=== PATIENT | male | born 1950 | race Caucasian/White ===

== ENCOUNTER 2019-08-03 19:02 | Inpatient (IN) | payer OTHER ==
[2019-08-03 19:54] LABS: Absolute Lymphocytes (CBC) 1.6 K/uL (0.7-4.9); Basophils % 0.9 % (0-1.3); Hematocrit 45.2 % (39.6-49.0); Lymphocytes % 25.1 % (15.3-44.8); MPV 7.9 fL (7.6-11.3); RBC Red Blood Cell Count 4.93 M/uL (4.33-5.43)
[2019-08-03 20:09] LABS: Protime INR 0.94
[2019-08-03 20:17] LABS: ALT/SGPT 54 U/L (12-78); AST/SGOT 43 U/L (15-37); Albumin 3.9 g/dL (3.4-5.0); Alkaline Phosphatase 78 U/L (45-117); BUN Blood Urea Nitrogen 16 mg/dL (7-18); Bicarbonate 27 mmol/L (21-32); Bilirubin Direct < 0.1 mg/dL (0-0.2); Bilirubin Total 0.4 mg/dL (0.2-1.0); Glucose Level 100 mg/dL (74-106); Magnesium 2.5 mg/dL (1.8-2.4); NT PRO-BNP 594 pg/mL (<125); Potassium 4.1 mmol/L (3.5-5.1); Protein, Total 7.1 g/dL (6.4-8.2); Sodium Level 142 mmol/L (136-145); Troponin (Emerg Dept Use Only) 0.22 ng/mL (0.0-0.045)
--- NOTE | 2019-08-03 20:50 | RAD REPORT ---
EXAM DESCRIPTION: RAD - Chest Single View - 08/03/2019 7:54 pm CLINICAL HISTORY: CHEST PAIN COMPARISON: None TECHNIQUE: AP portable chest image was obtained 08/03/2019 7:54 pm . FINDINGS: Lungs are clear. Heart and vasculature are normal. No measurable pleural effusion and no p neumothorax. No acute bony abnormality seen. No acute aortic findings suspected. IMPRESSION: No acute cardiopulmonary process.
--- NOTE | 2019-08-03 20:53 | ER ---
Nurse's Notes [facility] Name: Nam Ford Age: 69 yrs Sex: Male : 1950 Arrival Date: 08/03/2019 Time: 19:06 Bed 23 Private MD: Diagnosis: Chest pain, unspecified Presentation: 08/02 19:15 Chief complaint: Patient states: I am having this chest tightness non radiating started rr5 2 weeks ago. when I belch I feel fine. Coronavirus screen: Proceed with normal triage. Ebola Screen: Patient negative for fever greater than or equal to 101.5 degrees Fahrenheit, and additional compatible Ebola Virus Disease symptoms Patient denies exposure to infectious person. Patient denies travel to an Ebola-affected area in the 21 days before illness onset. Initial Sepsis Screen: Does the patient meet any 2 criteria? No. Patient's initial sepsis screen is negative. Does the patient have a suspected source of infection? No. Patient's initial sepsis screen is negative. Risk Assessment: Do you want to hurt yourself or someone else? Patient reports no desire to harm self or others. Onset of symptoms was June 2019. 19:15 Method Of Arrival: Ambulatory rr5 19:15 Acuity: SHARON 3 rr5 Historical: - Allergies: 19:19 No Known Allergies; rr5 - Home Meds: 19:19 aspirin 81 mg Oral chew 1 tab once daily [Active]; rr5 - PMHx: 19:19 None; rr5 - PSHx: 19:19 None; rr5 - Immunization history:: Adult Immunizations up to date. - Social history:: Smoking status: unknown Patient/guardian denies using alcohol, street drugs. Screenin:45 Abuse screen: Denies threats or abuse. Denies injuries from another. Nutritional wh screening: No deficits noted. Tuberculosis screening: No symptoms or risk factors identified. Fall Risk None identified. Assessment: 19:30 General: Appears in no apparent distress. Behavior is calm, cooperative, appropriate wh for age. Pain: Complains of pain in chest Pain does not radiate. Pain currently is 2 out of 10 on a pain scale. Quality of pain is described as pressure, Pain began 2 weeks ago Is intermittent. Neuro: Level of Consciousness is awake, alert, obeys commands, Oriented to person, place, time, situation, Appropriate for age. Cardiovascular: Heart tones S1 S2 Rhythm is regular. Respiratory: Airway is patent Respiratory effort is even, unlabored, Respiratory pattern is regular, symmetrical, Breath sounds are clear bilaterally. GI: Abdomen is flat, non-distended. : No signs and/or symptoms were reported regarding the genitourinary system. EENT: No signs and/or symptoms were reported regarding the EENT system. Derm: Skin is intact, is healthy with good turgor, Skin is pink, warm \T\ dry. normal. Musculoskeletal: Circulation, motion, and sensation intact. 21:05 Reassessment: Patient appears in no apparent distress at this time. No changes from previously documented assessment. Patient and/or family updated on plan of care and expected duration. Pain level reassessed. Patient is alert, oriented x 3, equal unlabored respirations, skin warm/dry/pink. MD at bedside explaining POC need for admit. 22:25 Reassessment: Patient appears in no apparent distress at this time. No changes from previously documented assessment. Patient and/or family updated on plan of care and expected duration. Pain level reassessed. Patient is alert, oriented x 3, equal unlabored respirations, skin warm/dry/pink. Vital Signs: 19:15 BP 147 / 86; Pulse 80; Resp 16; Temp 98.1; Pulse Ox 100% ; Weight 77.11 kg; Height 5 rr5 ft. 9 in. (175.26 cm); Pain 0/10; 21:00 BP 143 / 83; Pulse 85; Resp 18; Pulse Ox 99% on R/A; wh 22:00 BP 134 / 82; Pulse 70; Resp 18; Pulse Ox 100% on R/A; wh 19:15 Body Mass Index 25.10 (77.11 kg, 175.26 cm) rr5 ED Course: 19:06 Patient arrived in ED. mr 19:18 Triage completed. rr5 19:20 Arm band placed on left wrist. rr5 19:28 Ventura Barrios MD is Attending Physician. 7 19:36 Lisa Lowry is Primary Nurse. wh 19:45 Patient has correct armband on for positive identification. Bed in low position. Call light in reach. Side rails up X 1. classroom monitor on. Pulse ox on. NIBP on. 19:45 Inserted saline lock: 20 gauge in right antecubital area, using aseptic technique. Blood collected. Patient maintains SpO2 saturation greater than 95% on room air. 19:54 XRAY Chest (1 view) In Process Unspecified. EDID 20:50 Xavier Mccall is Hospitalizing Provider. [facility] 22:25 No provider procedures requiring assistance completed. Patient admitted, IV remains in place. Administered Medications: 20:47 CANCELLED (Physician Discretion): Aspirin Chewable Tablet 162 mg PO once [facility] 20:58 Drug: Lovenox 1 mg/kg Route: Sub-Q; Site: right lower abdomen; 21:08 Follow up: Response: No adverse reaction 20:59 Drug: Aspirin Chewable Tablet 324 mg {Note: 243 mg PO given, Pt took 81 mg Aspirin at home.} Route: PO; 21:08 Follow up: Response: No adverse reaction Outcome: 20:51 Decision to Hospitalize by Provider. [facility] 22:25 Admitted to Med/surg accompanied by tech, via wheelchair, room 212, with chart, Report called to Laura Harvey RN 22:25 Condition: stable 22:25 Instructed on the need for admit. 22:38 Patient left the ED. Signatures: Dispatcher [employer] Virginia Anderson mr Alen, [facility] Didier Parada RN RN rr5 Ventura Barrios MD MD 7
--- NOTE | 2019-08-03 20:53 | EDPHYS ---
Physician Documentation [facility] Name: Nam Ford Age: 69 yrs Sex: Male : 1950 Arrival Date: 08/03/2019 Time: 19:06 Bed 23 Private MD: ED Physician Ventura Barrios HPI: 08/02 19:38 This 69 yrs old Male presents to ER via Ambulatory with complaints of Chest mh7 Pain. 19:38 The patient or guardian reports chest pain that is located primarily in the substernal mh7 area. Onset: today, 4 hour(s) ago. The pain does not radiate. Associated signs and symptoms: Pertinent positives: nausea, Pertinent negatives: abdominal pain, cough, diaphoresis, dizziness, headache, lower extremity pain, lower extremity swelling, lightheadedness, near syncope, palpitations, recent travel, shortness of breath, syncope, vomiting. The chest pain is described as tightness. Duration: The patient or guardian reports multiple episodes, that are intermittent, that wax and wane, the episodes last approximately 5 minute(s). Modifying factors: The symptoms are alleviated by rest, the symptoms are aggravated by nothing. Severity of pain: At its worst the pain was moderate today, in the emergency department the pain has improved moderately. Patient states that he has had some intermittent chest tightness for 2 weeks that only occurred at night while laying down. He states that today he felt chest pain while at the store. He had some nausea but denies vomiting, SOB, abdominal pain, or other complaints.. Historical: - Allergies: 19:19 No Known Allergies; rr5 - Home Meds: 19:19 aspirin 81 mg Oral chew 1 tab once daily [Active]; rr5 - PMHx: 19:19 None; rr5 - PSHx: 19:19 None; rr5 - Immunization history:: Adult Immunizations up to date. - Social history:: Smoking status: unknown Patient/guardian denies using alcohol, street drugs. ROS: 19:38 Constitutional: Negative for fever, chills, and weight loss, Eyes: Negative for injury, mh7 pain, redness, and discharge, ENT: Negative for injury, pain, and discharge, Neck: Negative for injury, pain, and swelling, Respiratory: Negative for shortness of breath, cough, wheezing, and pleuritic chest pain, Back: Negative for injury and pain, : Negative for injury, bleeding, discharge, and swelling, MS/Extremity: Negative for injury and deformity, Skin: Negative for injury, rash, and discoloration, Neuro: Negative for headache, weakness, numbness, tingling, and seizure, Psych: Negative for depression, anxiety, suicide ideation, homicidal ideation, and hallucinations, Allergy/Immunology: Negative for hives, rash, and allergies, Endocrine: Negative for neck swelling, polydipsia, polyuria, polyphagia, and marked weight changes, Hematologic/Lymphatic: Negative for swollen nodes, abnormal bleeding, and unusual bruising. Exam: 19:38 Constitutional: This is a well developed, well nourished patient who is awake, alert, mh7 and in no acute distress. Head/Face: Normocephalic, atraumatic. Eyes: Pupils equal round and reactive to light, extra-ocular motions intact. Lids and lashes normal. Conjunctiva and sclera are non-icteric and not injected. Cornea within normal limits. Periorbital areas with no swelling, redness, or edema. Neck: Trachea midline, no thyromegaly or masses palpated, and no cervical lymphadenopathy. Supple, full range of motion without nuchal rigidity, or vertebral point tenderness. No Meningismus. Chest/axilla: Normal chest wall appearance and motion. Nontender with no deformity. No lesions are appreciated. Cardiovascular: Regular rate and rhythm with a normal S1 and S2. No gallops, murmurs, or rubs. Normal PMI, no JVD. No pulse deficits. Respiratory: Lungs have equal breath sounds bilaterally, clear to auscultation and percussion. No rales, rhonchi or wheezes noted. No increased work of breathing, no retractions or nasal flaring. Abdomen/GI: Soft, non-tender, with normal bowel sounds. No distension or tympany. No guarding or rebound. No evidence of tenderness throughout. Back: No spinal tenderness. No costovertebral tenderness. Full range of motion. Skin: Warm, dry with normal turgor. Normal color with no rashes, no lesions, and no evidence of cellulitis. MS/ Extremity: Pulses equal, no cyanosis. Neurovascular intact. Full, normal range of motion. Neuro: Awake and alert, GCS 15, oriented to person, place, time, and situation. Cranial nerves II-XII grossly intact. Motor strength 5/5 in all extremities. Sensory grossly intact. Cerebellar exam normal. Normal gait. Psych: Awake, alert, with orientation to person, place and time. Behavior, mood, and affect are within normal limits. 19:38 ECG was reviewed by the Attending Physician. 7 Vital Signs: 19:15 BP 147 / 86; Pulse 80; Resp 16; Temp 98.1; Pulse Ox 100% ; Weight 77.11 kg; Height 5 rr5 ft. 9 in. (175.26 cm); Pain 0/10; 21:00 BP 143 / 83; Pulse 85; Resp 18; Pulse Ox 99% on R/A; wh 22:00 BP 134 / 82; Pulse 70; Resp 18; Pulse Ox 100% on R/A; wh 19:15 Body Mass Index 25.10 (77.11 kg, 175.26 cm) rr5 MDM: 19:[address] [facility] 20:48 Differential diagnosis: acute myocardial infarction, acute pericarditis, coronary mh7 artery disease chest wall pain, congestive heart failure costochondritis, esophagitis, gastritis, myocarditis, pneumonia, stable angina, unstable angina. HEART Score: History: Moderately Suspicious (1), ECG: Non specific repolarization disturbance / LBTB / PM (1), Age: > or = 65 years (2), Risk Factors: No Risk Factors Known (0), Troponin: > 1 and < 3 x normal limit (1), Total Score = 5. The patient was given aspirin in the Emergency Department. Data reviewed: vital signs, nurses notes, lab test result(s), cardiac enzymes, CBC, electrolytes, urinalysis, EKG, radiologic studies, plain films. Data interpreted: teletypesetter monitor: rate is 80 beats/min, rhythm is normal sinus rhythm, regular, Interpretation: normal rate, normal rhythm, Pulse oximetry: on room air is 100 %. Interpretation: normal. Counseling: I had a detailed discussion with the patient and/or guardian regarding: the historical points, exam findings, and any diagnostic results supporting the discharge/admit diagnosis, the presence of at least one elevated blood pressure reading (>120/80) during this emergency department visit, lab results, radiology results, the need for further work-up and treatment in the hospital. Response to treatment: the patient's symptoms have markedly improved after treatment. 08/02 19:35 Order name: Basic Metabolic Panel; Complete Time: 20:39 7 08/02 19:35 Order name: CBC with Diff; Complete Time: 20:39 7 08/02 19:35 Order name: LFT's; Complete Time: 20:39 7 08/02 19:35 Order name: Magnesium; Complete Time: 20:39 7 08/02 19:35 Order name: NT PRO-BNP; Complete Time: 20:39 7 08/02 19:35 Order name: PT-INR; Complete Time: 06:39 7 08/02 19:35 Order name: Troponin (emerg Dept Use Only); Complete Time: 20:39 7 08/02 19:35 Order name: XRAY Chest (1 view); Complete Time: 06:39 7 08/02 19:35 Order name: EKG; Complete Time: 19:36 7 08/02 20:57 Order name: D-Dimer; Complete Time: 06:39 EDMS 08/02 19:35 Order name: Cardiac monitoring; Complete Time: 19:43 7 08/02 19:35 Order name: EKG - Nurse/Tech; Complete Time: 19:43 7 08/02 19:35 Order name: IV Saline Lock; Complete Time: 19:43 7 08/02 19:35 Order name: Labs collected and sent; Complete Time: 19:43 7 08/02 19:35 Order name: O2 Per Protocol; Complete Time: 19:43 7 08/02 19:35 Order name: O2 Sat Monitoring; Complete Time: 19:43 mh7 EC:38 Rate is 77 beats/min. Rhythm is regular, Normal Sinus Rhythm. QRS [place] is Normal. [place] mh7 interval is normal. QRS interval is normal. QT interval is normal. No Q waves. T waves are Inverted in lead V1. No ST changes noted. Clinical impression: NSR w/ Non-specific ST/T Changes. Administered Medications: 20:47 CANCELLED (Physician Discretion): Aspirin Chewable Tablet 162 mg PO once mh7 20:58 Drug: Lovenox 1 mg/kg Route: Sub-Q; Site: right lower abdomen; 21:08 Follow up: Response: No adverse reaction 20:59 Drug: Aspirin Chewable Tablet 324 mg {Note: 243 mg PO given, Pt took 81 mg Aspirin at home.} Route: PO; 21:08 Follow up: Response: No adverse reaction Disposition: 08/03/19 20:51 Hospitalization ordered by Xavier Mccall for Inpatient Admission. Preliminary diagnosis is Chest pain, unspecified. - Bed requested for Telemetry/MedSurg (Inpatient). - Status is Inpatient Admission. - Condition is Stable. - Problem is new. - Symptoms have improved. Signatures: Dispatcher [employer] [facility] Shae Landry, RN RN tl1 Alen, Lisa Didier Parada RN RN rr5 Ventura Barrios MD MD 7 Corrections: (The following items were deleted from the chart) 20:47 20:47 Aspirin Chewable Tablet 162 mg PO once ordered. [place] [id number] 20:57 20:45 D-DIMER+COAG.LAB.BRZ ordered. [facility] 22:12 20:51 Hospitalization Ordered by Xavier Mccall for Inpatient Admission. Preliminary tl1 diagnosis is Chest pain, unspecified. Bed requested for Telemetry/MedSurg (Inpatient). Status is Inpatient Admission. Condition is Stable. Problem is new. Symptoms have improved. [facility] 22:38 22:12 08/03/2019 20:51 Hospitalization Ordered by Xavier Mccall for Inpatient Admission. Preliminary diagnosis is Chest pain, unspecified. Bed requested for Telemetry/MedSurg (Inpatient). Status is Inpatient Admission. Condition is Stable. Problem is new. Symptoms have improved. tl1
[2019-08-03] MEDS ORDERED: ASPIRIN 81 MG CHEWABLE TABLET ONE (20:58)
[2019-08-03] MEDS ORDERED: ENOXAPARIN 80 MG/0.8 ML SQ ONE ×2 (21:04→22:58)
--- NOTE | 2019-08-03 21:21 | P.HP ---
Certification for Inpatient Patient admitted to: Observation With expected LOS: <2 Midnights Practitioner: I am a practitioner with admitting privileges, knowledge of patient current condition, hospital course, and medical plan of care. Services: Services provided to patient in accordance with Admission requirements found in Title 42 Section 412.3 of the Code of Federal Regulations Patient History Date of Service: 08/03/19 Reason for admission: Chest pain History of Present Illness: 69-year-old gentleman with no known past medical history presented emergency department with a complaint of intermittent chest of about 1 week duration. Chest pain described as tightness, worse with supine position, not related to exertion, no known aggravating or relieving factors. Patient to baby aspirin before coming to the ED. His initial troponin is elevated to 0.22. EKG demonstrates sinus rhythm with nonspecific T-wave changes. No known family history of cardiac disease. Patient is placed under observation for NSTEMI. Allergies No Known Allergies Allergy (Verified 08/03/19 22:49) Home Medications: Aspirin Chewable [Aspirin Chewable*] 1 tab PO DAILY 08/03/19 Atorvastatin Calcium 40 mg PO BEDTIME #30 tablet 08/05/19 Clopidogrel Bisulfate [Plavix] 75 mg PO DAILY #30 tablet 08/05/19 Metoprolol Tartrate [Lopressor*] 12.5 mg PO BID #60 tab 08/05/19 - Past Medical/Surgical History -: None -: None - Family History Mother -: Stroke Father Notes: denies hx - Social History Smoking Status: Never smoker Alcohol use: Yes CD- Drugs: No Place of Residence: Home Review of Systems Other: Except as documented, all other systems reviewed and negative. Physical Examination - Physical Exam General: Alert, In no apparent distress, Oriented x3 HEENT: Mucous membr. moist/pink Neck: Supple, JVD not distended Cardiovascular: No edema, Regular rate/rhythm, Normal S1 S2, No murmurs Gastrointestinal: Normal bowel sounds, Soft and benign, No tenderness Musculoskeletal: No swelling, No erythema Integumentary: No rashes, No tenderness/swelling Neurological: Normal speech, Normal strength at 5/5 x4 extr - Studies Laboratory Data (last 24 hrs) 08/03/19 19:40: PT 11.1, INR 0.94 08/03/19 19:40: WBC 6.4, Hgb 15.1, Hct 45.2, Plt Count 235 08/03/19 19:40: Sodium 142, Potassium 4.1, BUN 16, Creatinine 0.98, Glucose 100, Magnesium 2.5 H, Total Bilirubin 0.4, AST 43 H, ALT 54, Alkaline Phosphatase 78 Assessment and Plan - Problems (Diagnosis) (1) NSTEMI (non-ST elevated myocardial infarction) Status: Acute - Plan Place under observation. Continue to trend troponin. A shot of full-dose lovenox Aspirin, Plavix, metoprolol. Cardiology consult. Echocardiogram. Check lipid profile, TSH. - Advance Directives Does patient have a Living Will: No Does patient have a Durable POA for Healthcare: No
[2019-08-03] MEDS ORDERED: NITROGLYCERIN 0.4 MG/TAB SL PRN (22:58)
[2019-08-03 23:04] VITALS: BMI 24.9
[2019-08-03 23:47] LABS: Troponin I 0.21 ng/mL (0.0-0.045)
[2019-08-04] MEDS: METOPROLOL TAR 25 MG TAB PO SCH ×3 (00:10→21:24)
[2019-08-04 04:24] LABS: Absolute Lymphocytes (CBC) 1.6 K/uL (0.7-4.9); Basophils % 0.8 % (0-1.3); Hematocrit 43.2 % (39.6-49.0); Lymphocytes % 31.2 % (15.3-44.8); RBC Red Blood Cell Count 4.73 M/uL (4.33-5.43)
[2019-08-04 04:40] LABS: Potassium 4.2 mmol/L (3.5-5.1)
--- NOTE | 2019-08-04 06:54 | EKG ---
Test Date: 2019-08-03 Test Time: 19:24:44 [employer] T[employer]: RR MEASUREMENT RESULTS: Intervals: Rate: 77 TX: 192 QRSD: 88 QT: 382 QTc: 432 [place]: P: 54 TX: 192 QRS: -5 T: 35 INTERPRETIVE STATEMENTS: Normal sinus rhythm Nonspecific ST abnormality Abnormal ECG No previous ECG available for comparison Electronically Signed On 08-04-19 06:53:18 CDT by Aashish Baldwin
[2019-08-04] MEDS: ASPIRIN EC 81 MG TAB PO SCH (08:56)
--- NOTE | 2019-08-04 09:58 | CON ---
Date of Consultation: 08/04/2019 Reason For Consultation: [id number] myocardial infarction. History Of Present Illness: Mr. Ford is a 69-year-old white male with no past medical history, does not know if family history of CVA. Denied diabetes or dyslipidemia. Came in with substernal chest pressure, felt more like bloating, lasted about 15-20 minutes. He woke up right before he had the sy mptoms, so they are not exertional. The patient's symptoms radiated to the back. Had some nausea an d vomiting, but no diaphoresis. Has had some shortness of breath. His troponin was 0.22. His EKG w as nonspecific. His BNP was 594. Chest x-ray was negative. Past Medical History: Negative. Allergies: NONE. Medications: At home include aspirin. Review of Systems: Negative. Social History: Negative. He just moved from [place], [place] 2 weeks ago to live here close to his children. Physical Examination: Vital Signs: Stable, afebrile. HEENT: Negative. Neck: Supple, no bruit. Chest: Clear. Cardiac Exam: Revealed regular rhythm and rate. No murmurs, gallops, or rubs. Abdomen: Benign. Extremities: Revealed no clubbing, cyanosis, or edema. Diagnostic Data: As stated earlier. Impression And Plan: Patient with substernal chest pressure, positive troponin. He is on aspirin, m etoprolol, Lovenox. I agree with his present regimen. Echocardiogram is pending. I think he needs to have a heart catheterization to define his coronary anatomy. Patient understands the risk and the benefits of the procedure and he agrees to proceed. We will plan for the catheterization later on [facility]chel simms. JAY/JE Voice ID: [id number] Report ID: [id number]
[2019-08-04] MEDS ORDERED: HEPA 1000U/500MLS 1,000 UNIT/500 ML BAG IV ONE (10:15)
[2019-08-04] MEDS ORDERED: LIDOCAINE 1% 20 ML MDV ONE (10:15)
[2019-08-04] MEDS ORDERED: NA CHLORIDE 0.9% 1,000 ML ONE (10:47)
[2019-08-04] MEDS ORDERED: NA CHLORIDE 0.9% 50 ML ONE (10:56)
[2019-08-04] MEDS ORDERED: FENTANYL CITR 100 MCG/2 ML ONE (10:56)
[2019-08-04] MEDS ORDERED: MIDAZOLAM HCL 2 MG/2 ML INJ ONE ×2 (10:56→11:09)
[2019-08-04] MEDS ORDERED: ATROPINE SULF 1 MG/10 ML SYR IV ONE (10:56)
[2019-08-04] MEDS ORDERED: NITROGLYCERIN 100 MCG/ML SYR (for cath lab use only) IV ONE (11:36)
[2019-08-04] MEDS ORDERED: NITROGLYCERIN/D5W 25 MG/250 ML BTL IV ONE (11:37)
[2019-08-04] MEDS ORDERED: PRASUGREL (EFFIENT) 10 MG TAB ONE (12:07)
--- NOTE | 2019-08-04 15:19 | P.PN ---
Subjective Date of Service: 08/04/19 Chief Complaint: Chest pain Subjective: No new changes, No C/O voiced Physical Examination - Vital Signs Temperature: 97.2 F Blood Pressure: 114/67 Pulse: 69 Respirations: 16 Pulse Ox (%): 100 - Physical Exam General: Alert, In no apparent distress, Oriented x3 HEENT: Atraumatic, Normocephalic, PERRLA Neck: Supple, 2+ carotid pulse no bruit, JVD not distended Respiratory: Clear to auscultation bilaterally, Normal air movement Cardiovascular: No edema, Normal pulses, Regular rate/rhythm, Normal S1 S2 Gastrointestinal: Normal bowel sounds, Soft and benign, Non-distended Musculoskeletal: No clubbing, No swelling Neurological: Normal gait, Normal speech, Normal strength at 5/5 x4 extr - Studies Laboratory Data (last 24 hrs) 08/04/19 08:49: Troponin I 0.20 H 08/04/19 03:50: Sodium 144, Potassium 4.2, BUN 13, Creatinine 0.89, Glucose 101 08/04/19 03:50: WBC 5.1 D, Hgb 14.8, Hct 43.2, Plt Count 213 08/03/19 23:21: Troponin I 0.21 H, Triglycerides 133, Cholesterol 206 H, HDL Cholesterol 61 H, Cholesterol/HDL Ratio 3.38 08/03/19 19:40: PT 11.1, INR 0.94 08/03/19 19:40: WBC 6.4, Hgb 15.1, Hct 45.2, Plt Count 235 08/03/19 19:40: Sodium 142, Potassium 4.1, BUN 16, Creatinine 0.98, Glucose 100, Magnesium 2.5 H, Total Bilirubin 0.4, AST 43 H, ALT 54, Alkaline Phosphatase 78 Microbiology Data (last 24 hrs): 08/03/19 23:03 Nasopharnyx Coronavirus COVID-19 PCR - Final Assessment And Plan Discharge Plan: Home Physician Review: Patient Assessed, Agree with Above Assessment and Plan Physician Review Additional Text: Chest pain-follow cardiac catheterization today If negative CT scan discharged Hypertension-controlled Time Spent Managing PTS Care (In Minutes): 30
--- NOTE | 2019-08-05 03:38 | OP ---
Surgeon: Aashish Baldwin MD Endoscopy Support Specialist: Augustina Ramirez. Procedure: Left heart catheterization, selective coronary arteriogram, primary stent of the proximal LAD, primary stent of the distal RCA. Indication: Mr. Ford is a 69-year-old white male, no previous medical history, who comes in with a non-ST elevation myocardial infarction on 08/03/2019. Description Of Procedure: He was brought to the laborer electroplating today as an inpatient. Today's date was . He was prepped and draped in the routine sterile fashion. He was given Versed and fentany l for sedation. A 6-Citizen [place] sheath introduced in the right common femoral artery successfully. Left Justen catheter and right Justen catheter were used to cannulate the left main and right main respe ctively. He was found to have a 50% OM1. He had a 95% proximal LAD. He had a 90% distal RCA. Inte rventions were decided on both lesions. The LAD was intervened using an XB LAD 3.5 guide with side h oles. A 0.014 [place] wire was used to cross the lesion successfully. A 2.75 x 16 stent was deployed with 0% residual. There were no complications, dissections, or acute closure or thrombus. Followin g that, a JR4 6-[place]izen [place] with side hole was used to cannulate the right main. The same wire was used t o cross the distal lesion in the RCA. A 2.5 x 12 stent Synergy was then deployed distally with 0% re sidual. Following the stent, there were some spasm in the proximal RCA with ST elevation that was tr eated with IV nitroglycerin intracoronary with resolution of the spasm and resolution of the ST wilkes es. Patient was asymptomatic without any hemodynamic compromise. He had occasional PVC. Overall, t here were no complications. Blood loss was 5 mL. Patient received Angiomax, aspirin, and Effient dur ing the procedure. Total conscious sedation was 1 hour. Final Diagnosis: [id number] myocardial infarction, status post primary stent of the LAD, proxi mal and primary stent of the RCA, distal. Plan: Patient will be admitted back to the floor. He will be going home tomorrow morning on aspirin , Plavix, Lipitor, and Toprol. NB/MODL Voice ID: [id number] Report ID: [id number]
[2019-08-05] MEDS: METOPROLOL TAR 25 MG TAB PO SCH (08:29)
[2019-08-05] MEDS: ASPIRIN EC 81 MG TAB PO SCH (08:29)
[2019-08-05 08:32] VITALS: BP 113/65
--- NOTE | 2019-08-05 08:54 | ECHO ---
HEIGHT: 5 ft 9 in WEIGHT: 168 lb 11.2 oz DATE OF STUDY: 08/04/[address]: precious arredondo 2-DIMENSIONAL: YES M.MODE: YES DOPPLER: YES COLOR FLOW: YES TDS: PORTABLE: DEFINITY: BUBBLE STUDY: DIAGNOSIS: NSTEMI CARDIAC HISTORY: CATHERIZATION: NO SURGERY: NO PROSTHETIC VALVE: NO PACEMAKER: NO MEASUREMENTS (cm) DIASTOLIC (NORMALS) SYSTOLIC (NORMALS) IVSd 0.9 (0.6-1.2) LA Diam 3.3 (1.9-4.0) LVEF 59% LVIDd 4.6 (3.5-5.7) LVIDs 3.2 (2.0-3.5) %FS 31% LVPWd 0.9 (0.6-1.2) Ao Diam 3.1 (2.0-3.7) 2 DIMENSIONAL ASSESSMENT: RIGHT ATRIUM: NORMAL LEFT ATRIUM: NORMAL RIGHT VENTRICLE: NORMAL LEFT VENTRICLE: NORMAL TRICUSPID VALVE: NORMAL MITRAL VALVE: NORMAL PULMONIC VALVE: NORMAL AORTIC VALVE: NORMAL PERICARDIAL EFFUSION: NONE AORTIC ROOT: NORMAL LEFT VENTRICULAR WALL MOTION: DOPPLER/COLOR FLOW: COMMENTS: NORMAL 2-DIMENSIONAL ECHOCARDIOGRAM WITH DOPPLER. NO WALL MOTION ABNORMALITY. NO EFFUSION. TECHNOLOGIST: NATALY BLISS
[2019-08-05 09:14] VITALS: TEMP 96.8
[2019-08-05 10:13] VITALS: O2SAT 99
--- NOTE | 2019-08-05 21:27 | DS ---
Date of Discharge: 08/05/2019 Consultants: Dr. Baldwin with Cardiology. Procedures: Cardiac catheterization on 08/04/2019 for NSTEMI status post LAD stent and stent of distal RCA. Discharge diagnosis: 1. NSTEMI Hospital Course: Patient is a 69-year-old male with no significant past medical history, comes in with intermittent chest pain. Patient was admitted to the hospital, was found to have NSTEMI. He was placed on full-dose Lovenox, aspirin, Plavix, and metoprolol. His enzymes were elevated at 0.22. Patient was taken for heart catheterization by Dr. Baldwin, found to have blockage, required a stent in LAD and RCA as mentioned above. Echocardiogram showed EF of 59%. Patient did well postoperatively. His chest pain resolved. He was then cleared for discharge. Chest x-ray was negative. He was then sent home in a stable condition. Activity: As tolerated. Medications: As per medication reconciliation list. Followup: Follow up with primary care physician in 2-3 days. Follow up with multi skilled operator, Dr. Baldwin in 2 weeks. Return to ER for worsening condition. Diet: Heart healthy. Physical Examination: General: Awake, alert, oriented x3, not in any acute distress. CV: S1, S2. No murmurs. Respiratory: Moving air well bilaterally. No wheezing. Abdomen: Soft, nontender, nondistended. Positive bowel sounds. Extremities: No clubbing, cyanosis, or edema. Neurologic: Nonfocal. Total time spent discharging patient was 35 minutes. /JE Voice ID: [id number] Report ID: [id number] [facility]ITALJyothi
== END 2019-08-05 10:00 | disposition home or self-care (01) | DRG 247 ==
LOC: ER 19:02 → ERHOLD 21:27 → 2ND 22:27 → OBSVTOIN 08-04 09:00
PROVIDERS: ADMIT Internal Medicine; ATTEND Internal Medicine
PROC: 027135Z Dilation of Coronary Artery, Two Arteries with Two Drug-eluting Intraluminal Devices, Percutaneous Approach (ICD-10-PCS; principal; 2019-08-05)
PROC: 4A023N7 Measurement of Cardiac Sampling and Pressure, Left Heart, Percutaneous Approach (ICD-10-PCS; 2019-08-05)
PROC: B2111ZZ Fluoroscopy of Multiple Coronary Arteries using Low Osmolar Contrast (ICD-10-PCS; 2019-08-05)
DX: I21.4 Non-ST elevation (NSTEMI) myocardial infarction (principal); I10 Essential (primary) hypertension; Z79.82 Long term (current) use of aspirin; Z79.02 Long term (current) use of antithrombotics/antiplatelets; Z79.899 Other long term (current) drug therapy; Z20.828 Contact with and (suspected) exposure to other viral communicable diseases
CPT/HCPCS: 36415; 71045; 80048; 80061; 80076; 83735; 83880; 84484; 85025; 85347; 85379; 85610; 93005; 93306; 93454; 96372; 99285; C1725; C1760; C1877; C1893; C9600; C9601; G0378; J0583; J1650; J2250; J3010; J7030; U0002